=== PATIENT | male | born 1945 | race Caucasian/White ===

== ENCOUNTER 2018-11-15 22:56 | Emergency (ER) | payer BC ==
--- NOTE | 2018-11-16 00:51 | EDM.PDOC ---
ED HPI GENERAL MEDICAL PROBLEM - General Chief Complaint: Genitourinary Problem Stated Complaint: POST SURGERY AND URINARY TENSION [id number] Time Seen by Provider: 11/16/18 00:40 Source of Information: Reports: Patient History Limitations: Reports: No Limitations - History of Present Illness INITIAL COMMENTS - FREE TEXT/NARRATIVE: This 73 yo male patient reports to the ED with difficulties urinating. The patient had surgery for a umbilical hernia and has not been able to void in the past 12 hours. The patient reports he has the urge to urinate, but has not been able to urinate. Onset: Today Duration: Hour(s): (12), Constant Location: Reports: Abdomen Quality: Reports: Pressure Severity: Moderate Improves with: Reports: None Worsens with: Reports: None Context: Reports: Other Lower Abdomen Pain Score (Numeric/FACES): 2 - Related Data Allergies Allergy/AdvReac Type Severity Reaction Status Date / Time lisinopril Allergy Cough Verified 11/16/18 00:31 Penicillins Allergy Rash Verified 11/16/18 00:31 Past Medical History Cardiovascular History: Reports: High Cholesterol, Hypertension Respiratory History: Reports: COPD Genitourinary History: Reports: Prostate Disorder - Past Surgical History GI Surgical History: Reports: Hernia Repair/Other Other GI Surgeries/Procedures: umbilical hernia repair in 11-15-2018 Other Musculoskeletal Surgeries/Procedures:: left shoulder surgery Social & Family History - Tobacco Use Smoking Status *Q: Never Smoker Second Hand Smoke Exposure: No - Caffeine Use Caffeine Use: Reports: Coffee - Alcohol Use Date of Last Drink: 11/11/18 - Recreational Drug Use Recreational Drug Use: No ED ROS GENERAL - Review of Systems Review Of Systems: ROS reveals no pertinent complaints other than HPI. ED EXAM, RENAL/ - Physical Exam Exam: See Below Exam Limited By: No Limitations General Appearance: Alert, WD/WN, Moderate Distress Eye Exam: Bilateral Eye: EOMI, Normal Inspection, PERRL Ears: Normal External Exam, Normal Canal, Hearing Grossly Normal, Normal TMs Nose: Normal Inspection, Normal Mucosa, No Blood Throat/Mouth: Normal Inspection, Normal Lips, Normal Teeth, Normal Gums, Normal Oropharynx, Normal Voice, No Airway Compromise Head: Atraumatic, Normocephalic Neck: Normal Inspection, Supple, Non-Tender, Full Range of Motion Respiratory/Chest: No Respiratory Distress, Lungs Clear, Normal Breath Sounds, No Accessory Muscle Use, Chest Non-Tender GI/Abdominal: Normal Bowel Sounds, No Organomegaly, No Distention, No Abnormal Bruit, No Mass, Pelvis Stable, Tender (lower abdomen) (Male) Exam: Deferred Rectal (Males) Exam: Deferred Back Exam: Normal Inspection, Full Range of Motion, NT Extremities: Normal Inspection, Normal Range of Motion, Non-Tender, Normal Capillary Refill, No Pedal Edema Neurological: Alert, Oriented, CN II-XII Intact, Normal Cognition, Normal Gait, Normal Reflexes, No Motor/Sensory Deficits Psychiatric: Normal Affect, Normal Mood Skin Exam: Warm, Dry, Intact, Normal Color, No Rash Lymphatic: No Adenopathy Course - Vital Signs Last Recorded V/S: Last Vital Signs Temp 36.8 C 11/16/18 00:13 Pulse 97 11/16/18 00:13 Resp 17 11/16/18 00:13 BP 167/68 H 11/16/18 00:13 Pulse Ox 96 11/16/18 00:13 Departure - Departure Time of Disposition: :17 Disposition: Home, Self-Care 01 Condition: Fair Clinical Impression: Postoperative urinary retention - Discharge Information *PRESCRIPTION DRUG MONITORING PROGRAM REVIEWED*: Not Applicable *COPY OF PRESCRIPTION DRUG MONITORING REPORT IN PATIENT BRAEDEN: Not Applicable Forms: ED Department Discharge Care Plan Goals: The patient and his were advised of the examination results during the visit. While in the ED, a catheter was inserted to drain the patient's bladder. The patient was discharged with the catheter in place. The patient was encouraged to have the catheter removed in 2-3 days. If the patient has any additional symptoms or concerns, the patient should either return to the emergency department or visit his primary care facility.
== END 2018-11-16 01:30 | disposition home or self-care (01) ==
LOC: DL.ED 22:56
DX: K91.89 Other postprocedural complications and disorders of digestive system (principal); R33.8 Other retention of urine; I10 Essential (primary) hypertension; E78.00 Pure hypercholesterolemia, unspecified; Z88.8 Allergy status to other drugs, medicaments and biological substances; Z88.0 Allergy status to penicillin
CPT/HCPCS: 51702; 51798; 99283

== ENCOUNTER 2023-05-12 11:29 | Emergency (ER) | payer BC ==
[2023-05-12] MEDS ORDERED: Sodium Chloride 0.9% 10 ML Syringe FLUSH PRN (11:30)
[2023-05-12] MEDS ORDERED: Aspirin 81 MG Tab.Chew PO ONE (11:35)
[2023-05-12] MEDS ORDERED: Diltiazem 25 MG/5 ML SDV IVPUSH ONE (11:35)
[2023-05-12 11:42] LABS: BASOPHILS PERCENT AUTO 0.1 % (0.0-1.0); HEMATOCRIT 37.4 % (40.0-54.0); HEMOGLOBIN 12.4 g/dL (14.0-18.0); LYMPHOCYTES PERCENT AUTO 26.4 % (20.5-50.1); MEAN CORPUSCULAR HEMOGLOBIN 32.3 pg (27.0-34.0); MEAN CORPUSCULAR HGB CONC 33.2 g/dL (33.0-35.0); MEAN CORPUSCULAR VOLUME 97.4 fL (80-100); MONOCYTES PERCENT AUTO 11.6 % (2-8); NEUTROPHILS PERCENT AUTO 60.9 % (42.2-75.2); PLATELET COUNT,PLT 207 10^3/uL (150-450); RED BLOOD CELL COUNT 3.84 10^6/uL (4.6-6.2); WHITE BLOOD CELL COUNT,WBC 7.1 10^3/uL (5.0-10.0)
[2023-05-12] MEDS ORDERED: Diltiazem 125 MG in Sodium Chloride 0.9% 100 ML IV SCH (11:45)
[2023-05-12] MEDS ORDERED: Sodium Chloride 0.9% 1,000 ML IV ONE (11:52)
[2023-05-12] MEDS ORDERED: Digoxin 500 MCG/2 ML Amp IVPUSH ONE (11:56)
[2023-05-12 12:03] LABS: PROTHROMBIN TIME 9.8 SEC (9.0-12.0); PTT,PARTIAL THROMBOPLSTIN TIME 24.1 SEC (22.0-34.0)
[2023-05-12 12:12] LABS: A/G RATIO 1.2; ALBUMIN 3.7 g/dL (3.4-5.0); ANION GAP 13.2 mEq/L (7-13); BILIRUBIN TOTAL 0.4 mg/dL (0.2-1.0); BUN/CREATININE RATIO 23.5 (No establ ref range); CALCIUM 8.7 mg/dL (8.5-10.1); CREATININE 1.19 mg/dL (0.70-1.30); EST CRCL DRUG DOSING (CG) 53.64 mL/min; MAGNESIUM 2.2 mg/dL (1.8-2.4); POTASSIUM,K 4.2 mmol/L (3.5-5.1); PROTEIN TOTAL,TP 6.9 g/dL (6.4-8.2); TSH ULTRASENSITIVE 2.58 uIU/mL (0.36-3.74)
== END 2023-05-12 13:41 ==
LOC: DL.ED 11:29
DX: I48.91 Unspecified atrial fibrillation (principal); I48.92 Unspecified atrial flutter; E78.00 Pure hypercholesterolemia, unspecified; I10 Essential (primary) hypertension; J44.9 Chronic obstructive pulmonary disease, unspecified; Z87.891 Personal history of nicotine dependence; Z88.8 Allergy status to other drugs, medicaments and biological substances; Z88.0 Allergy status to penicillin; Z79.899 Other long term (current) drug therapy
CPT/HCPCS: 36415; 71045; 80053; 83735; 83880; 84443; 84484; 85025; 85379; 85610; 85730; 93005; 93010; 96361; 96365; 96375; 96376; 99285; 99285-25; A9270-GY; J1160; J3490; J7030